=== PATIENT | female | born 1950 | race African-American/Black ===

== ENCOUNTER → 2022-12-09 | Outpatient (CLI) | payer MEDICARE ==
[~2022-12-09] MED LIST: AMLO10TA80 MT; DULO60CA45 PO; LIP40 PO; METF-414 PO
== END | disposition home or self-care (01) ==
LOC: CT 11:00
PROVIDERS: ATTEND Internal Medicine
DX: D44.12 Neoplasm of uncertain behavior of left adrenal gland (principal); M17.0 Bilateral primary osteoarthritis of knee; E27.8 Other specified disorders of adrenal gland; R05.9 Cough, unspecified; M25.762 Osteophyte, left knee; M25.761 Osteophyte, right knee
CPT/HCPCS: 71046; 73565; 74176